=== PATIENT | female | born 1970 | race African-American/Black ===

== ENCOUNTER 2025-02-14 22:02 | Emergency (ER) | payer MEDICAID ==
[~2025-02-14] VITALS: Ht 160 cm; Wt 55.6 kg
[2025-02-14 22:13] VITALS: TEMP 36.7; O2SAT 100
[2025-02-14] MEDS ORDERED: AMLO5TAB88 MT (22:28)
[2025-02-14] MEDS ORDERED: ESCI20TA37 MT (22:28)
[2025-02-14 22:46] VITALS: BP 101/62; PULSE 72; RESP 18; O2SAT 100
== END 2025-02-14 22:46 | disposition home or self-care (01) ==
LOC: ER 22:02
DX: I10 Essential (primary) hypertension (principal); Z76.0 Encounter for issue of repeat prescription; Z98.890 Other specified postprocedural states; Z79.899 Other long term (current) drug therapy; Z88.5 Allergy status to narcotic agent
CPT/HCPCS: 99281